=== PATIENT | female | born 1960 | race African-American/Black ===

== ENCOUNTER 2023-03-07 15:24 | Inpatient (IN) | payer MEDICAID, OTHER ==
[~2023-03-07] VITALS: Ht 175.3 cm; Wt 97.1 kg
[2023-03-07 15:36] VITALS: PULSE 186; RESP 27; O2SAT 99
[2023-03-07] MEDS ORDERED: ADENOSINE 6 MG/2 ML INJ IV ONE ×4 (15:48→16:30)
[2023-03-07] MEDS ORDERED: dilTIAZem 25 MG/5 ML VIAL IV ONE (16:00)
[2023-03-07 16:15] LABS: Basophils # (auto) 0.1 10 ^3/uL (0-0.2); Basophils % (auto) 0.8 % (0.0-2.0); Eosinophils # (auto) 0 10 ^3/uL (0-0.8); Eosinophils % (auto) 0.8 % (0.0-7.0); Hematocrit 37.2 % (36.0-46.0); Hemoglobin 12.2 g/dL (12.2-16.2); Lymphocytes # (auto) 1.6 10 ^3/uL (0.4-5.4); Lymphocytes % (auto) 25.2 % (10.0-50.0); Mean Corpuscular Hgb Conc. 32.7 g/dL (32.0-36.0); Mean Corpuscular Volume 82.6 fL (80.0-100.0); Monocytes # (auto) 0.7 10 ^3/uL (0-1.3); Monocytes % (auto) 11.5 % (0.0-12.0); Neutrophils # (auto) 3.9 10 ^3/uL (1.6-8.6); Neutrophils % (auto) 61.7 % (37.0-80.0); Red Cell Distribution Width 12.2 % (11.8-14.3); White Blood Cell 6.2 10^3/uL (4.4-10.8)
[2023-03-07 16:38] LABS: Calcium 8.7 mg/dL (8.5-10.1); Potassium 3.8 mmol/L (3.5-5.1)
[2023-03-07 16:41] LABS: BUN/Creatinine Ratio 12.1 (10.0-20.0); Bilirubin, Total 0.7 mg/dL (0.2-1.0); Total Protein 7.2 g/dL (6.4-8.2)
[2023-03-07] MEDS ORDERED: ASPirin 325 MG TAB PO ONE (17:15)
[2023-03-07] MEDS ORDERED: cefTRIAXone 1GM/50ML D5W 50 ML IV ONE (18:30)
[2023-03-07] MEDS ORDERED: MORPHINE SULFATE INJ 2 MG/ml SYRG IV PRN (19:00)
[2023-03-07] MEDS ORDERED: NITROGLYCERIN 0.4 MG SL TAB SL PRN (19:00)
[2023-03-07] MEDS ORDERED: DEXTROSE (50%) 50ML SYRG IV PRN (19:00)
[2023-03-07 19:30] VITALS: PULSE 84; RESP 16; O2SAT 97
[2023-03-07] MEDS ORDERED: SODIUM CHLORIDE 0.9% 1,000 ML IV ONE (19:45)
[2023-03-07] MEDS: ATORVASTATIN 20 MG TAB PO SCH (21:57)
[2023-03-07] MEDS: ACCU-CHEK COMFORT CURVE STRIP VI SCH (21:58)
[2023-03-07] MEDS: METOPROLOL TARTRATE 25 MG TAB PO SCH (22:00)
[2023-03-07] MEDS: InsuLIN REG 1unit/0.01ml Soln (100units/ml) SC SCH (22:00)
[2023-03-08] MEDS: HYDROcodone-ACET 5/325MG TAB PO PRN ×3 (00:17→20:48)
[2023-03-08 06:10] LABS: Basophils # (auto) 0 10 ^3/uL (0-0.2); Basophils % (auto) 0.5 % (0.0-2.0); Eosinophils # (auto) 0.1 10 ^3/uL (0-0.8); Eosinophils % (auto) 1.9 % (0.0-7.0); Hematocrit 34.8 % (36.0-46.0); Hemoglobin 11.4 g/dL (12.2-16.2); Lymphocytes # (auto) 1.7 10 ^3/uL (0.4-5.4); Lymphocytes % (auto) 28.8 % (10.0-50.0); Mean Corpuscular Hemoglobin 27.2 pg (28.0-32.0); Mean Corpuscular Hgb Conc. 32.6 g/dL (32.0-36.0); Mean Corpuscular Volume 83.5 fL (80.0-100.0); Monocytes # (auto) 0.7 10 ^3/uL (0-1.3); Monocytes % (auto) 11.1 % (0.0-12.0); Neutrophils # (auto) 3.5 10 ^3/uL (1.6-8.6); Neutrophils % (auto) 57.7 % (37.0-80.0); Nucleated Red Blood Cells % 0.1 %; Potassium 3.4 mmol/L (3.5-5.1); Red Blood Cells 4.17 10^6/uL (4.0-5.20); Red Cell Distribution Width 12.2 % (11.8-14.3); White Blood Cell 6.1 10^3/uL (4.4-10.8)
[2023-03-08 06:18] LABS: Albumin 2.5 g/dL (3.4-5.0); BUN/Creatinine Ratio 11.9 (10.0-20.0); Bilirubin, Total 0.5 mg/dL (0.2-1.0); Calcium 8.4 mg/dL (8.5-10.1); Total Protein 6.8 g/dL (6.4-8.2)
[2023-03-08] MEDS: ACCU-CHEK COMFORT CURVE STRIP VI SCH ×4 (06:42→21:39)
[2023-03-08] MEDS: InsuLIN REG 1unit/0.01ml Soln (100units/ml) SC SCH ×4 (06:45→21:52)
[2023-03-08 08:07] VITALS: PULSE 78; RESP 20; O2SAT 98
[2023-03-08] MEDS ORDERED: ASPirin-EC 81 mg tab PO SCH (10:00)
[2023-03-08] MEDS: PANTOPRAZOLE 40 MG/10 ML VIAL INJ IV SCH (10:26)
[2023-03-08] MEDS: METOPROLOL TARTRATE 25 MG TAB PO SCH (10:26)
[2023-03-08] MEDS: ENOXAPARIN SOD 40 MG/0.4 ML SYRINGE SC SCH (10:27)
[2023-03-08] MEDS ORDERED: MAGNESIUM SULFATE 1GM/100ML 100 ML IV ONE (11:45)
[2023-03-08] MEDS ORDERED: POTASSIUM CHL 20 Meq TABLET PO ONE (11:45)
[2023-03-08 18:04] VITALS: BP 137/83; PULSE 83; RESP 18; TEMP 98.6; O2SAT 96
[2023-03-08 18:06] VITALS: BP 137/83; PULSE 83; RESP 18; TEMP 98.6; O2SAT 96
[2023-03-08 20:00] VITALS: BP 132/92; PULSE 162; PULSE 85; RESP 18; O2SAT 96
[2023-03-08 21:04] VITALS: BP 118/64; PULSE 167; RESP 18; O2SAT 98
[2023-03-08] MEDS ORDERED: dilTIAZem 25 MG/5 ML VIAL IV ONE ×2 (21:04→21:15)
[2023-03-08] MEDS: ATORVASTATIN 20 MG TAB PO SCH (21:51)
[2023-03-08 22:00] VITALS: BP 109/49; PULSE 85; RESP 24; TEMP 99.1; O2SAT 93
[2023-03-08] MEDS ORDERED: METOPROLOL TARTRATE 50 MG TAB PO SCH (22:00)
[2023-03-09] VITALS (7 sets, daily range): BP systolic 95–117; BP diastolic 45–57; PULSE 66–100; RESP 14–21; TEMP 97.5–98.9; O2SAT 93–100
[2023-03-09] MEDS: HYDROcodone-ACET 5/325MG TAB PO PRN (04:37)
[2023-03-09 06:00] LABS: Basophils # (auto) 0.1 10 ^3/uL (0-0.2); Basophils % (auto) 0.9 % (0.0-2.0); Eosinophils # (auto) 0.2 10 ^3/uL (0-0.8); Eosinophils % (auto) 3.5 % (0.0-7.0); Hematocrit 34.2 % (36.0-46.0); Hemoglobin 11.2 g/dL (12.2-16.2); Lymphocytes # (auto) 2.2 10 ^3/uL (0.4-5.4); Lymphocytes % (auto) 35.4 % (10.0-50.0); Mean Corpuscular Hemoglobin 27.4 pg (28.0-32.0); Mean Corpuscular Hgb Conc. 32.7 g/dL (32.0-36.0); Mean Corpuscular Volume 83.8 fL (80.0-100.0); Monocytes # (auto) 0.6 10 ^3/uL (0-1.3); Neutrophils # (auto) 3.2 10 ^3/uL (1.6-8.6); Neutrophils % (auto) 51.2 % (37.0-80.0); Nucleated Red Blood Cells % 0.1 %; Red Blood Cells 4.08 10^6/uL (4.0-5.20); Red Cell Distribution Width 12.4 % (11.8-14.3); White Blood Cell 6.2 10^3/uL (4.4-10.8)
[2023-03-09 06:10] LABS: BUN/Creatinine Ratio 10.5 (10.0-20.0); Calcium 8.5 mg/dL (8.5-10.1); Magnesium 2.1 mg/dL (1.6-2.6); Potassium 3.6 mmol/L (3.5-5.1)
[2023-03-09] MEDS: ACCU-CHEK COMFORT CURVE STRIP VI SCH ×4 (06:26→21:16)
[2023-03-09] MEDS: InsuLIN REG 1unit/0.01ml Soln (100units/ml) SC SCH ×4 (06:36→22:13)
[2023-03-09] MEDS ORDERED: METO25TA5 PO (07:33)
[2023-03-09] MEDS ORDERED: GLIP5TAB12 PO (07:33)
[2023-03-09] MEDS ORDERED: METF-370 PO (07:33)
[2023-03-09] MEDS ORDERED: ADENOSINE 82 MG in GIVE UN-DILUTED 0 ML IV ONE (07:45)
[2023-03-09] MEDS ORDERED: POTASSIUM CHL 20 Meq TABLET PO ONE (09:00)
[2023-03-09] MEDS: ENOXAPARIN SOD 40 MG/0.4 ML SYRINGE SC SCH (10:00)
[2023-03-09] MEDS ORDERED: VANCOMYCIN PER PHARMACY 0 MG IV ONE (10:00)
[2023-03-09] MEDS ORDERED: dilTIAZem HCL 180MG ER CAP PO SCH (10:00)
[2023-03-09] MEDS: PANTOPRAZOLE 40 MG/10 ML VIAL INJ IV SCH (13:41)
[2023-03-09] MEDS: AMIODARONE HCL 200 MG TAB PO SCH ×2 (13:44→22:08)
[2023-03-09] MEDS: MAGNESIUM OXIDE 400 MG TAB PO SCH (13:44)
[2023-03-09] MEDS: VANCOMYCIN 1GM/250ML 250 ML IV SCH ×2 (13:44→22:58)
[2023-03-09] MEDS: PIPERACILLIN-TAZOB 3.375GM 100 ML IV SCH ×2 (16:09→18:48)
[2023-03-09] MEDS: IBUPROFEN 600 MG TAB PO PRN (20:32)
[2023-03-09 21:08] LABS: Sodium Urine 59 mmol/L (40-220)
[2023-03-09 21:11] LABS: Cocaine Screen, Urine NEGATIVE (NEGATIVE); Creatinine, Urine 104 mg/dL (30.0-125.0); Phencyclidine Screen, Urine NEGATIVE (NEGATIVE)
[2023-03-09 21:13] LABS: Alcohol, Urine < 3.0 mg/dL (0-10); Amphetamine Screen, Urine NEGATIVE (NEGATIVE); Barbiturate Scree,Urine NEGATIVE (NEGATIVE); Benzodiazephine Screen, Urine NEGATIVE (NEGATIVE); Cannabinoid Screen, Urine NEGATIVE (NEGATIVE); Opiate Scree,Urine POSITIVE (NEGATIVE)
[2023-03-09 21:19] LABS: Urine Bacteria FEW /hpf (None Seen); Urine Blood Negative /uL (Negative); Urine Specific Gravity 1.015 (1.001-1.035); Urine WBC 2 /hpf (0 - 5)
[2023-03-09] MEDS: ATORVASTATIN 20 MG TAB PO SCH (22:08)
[2023-03-10] VITALS (7 sets, daily range): BP systolic 96–110; BP diastolic 41–70; PULSE 57–67; RESP 15–18; TEMP 97.9–98.4; O2SAT 98–100
[2023-03-10] MEDS: PIPERACILLIN-TAZOB 3.375GM 100 ML IV SCH ×3 (03:16→21:02)
[2023-03-10 06:07] LABS: Basophils # (auto) 0 10 ^3/uL (0-0.2); Basophils % (auto) 0.6 % (0.0-2.0); Eosinophils # (auto) 0.2 10 ^3/uL (0-0.8); Eosinophils % (auto) 3.1 % (0.0-7.0); Hematocrit 33.5 % (36.0-46.0); Hemoglobin 11.1 g/dL (12.2-16.2); Lymphocytes # (auto) 1.4 10 ^3/uL (0.4-5.4); Lymphocytes % (auto) 27.8 % (10.0-50.0); Mean Corpuscular Hemoglobin 27.6 pg (28.0-32.0); Mean Corpuscular Volume 83.5 fL (80.0-100.0); Monocytes # (auto) 0.5 10 ^3/uL (0-1.3); Monocytes % (auto) 9.4 % (0.0-12.0); Neutrophils % (auto) 59.1 % (37.0-80.0); Nucleated Red Blood Cells % 0.1 %; Red Blood Cells 4.01 10^6/uL (4.0-5.20); Red Cell Distribution Width 12.2 % (11.8-14.3)
[2023-03-10 06:27] LABS: BUN/Creatinine Ratio 11.3 (10.0-20.0); Calcium 8.6 mg/dL (8.5-10.1); Potassium 3.9 mmol/L (3.5-5.1)
[2023-03-10] MEDS: InsuLIN REG 1unit/0.01ml Soln (100units/ml) SC SCH ×4 (07:00→21:56)
[2023-03-10] MEDS: ACCU-CHEK COMFORT CURVE STRIP VI SCH ×4 (07:09→21:29)
[2023-03-10] MEDS ORDERED: PNEUMOCOCCAL VACC POLYS 25 MCG/0.5 ML VIAL IM ONE (08:00)
[2023-03-10] MEDS ORDERED: dilTIAZem 120MG ER CAP PO SCH (10:00)
[2023-03-10] MEDS: VANCOMYCIN 1GM/250ML 250 ML IV SCH (10:11)
[2023-03-10] MEDS: MAGNESIUM OXIDE 400 MG TAB PO SCH (10:11)
[2023-03-10] MEDS: ENOXAPARIN SOD 40 MG/0.4 ML SYRINGE SC SCH (10:12)
[2023-03-10] MEDS: ASPirin 81 mg TAB PO SCH (10:12)
[2023-03-10] MEDS: AMIODARONE HCL 200 MG TAB PO SCH ×2 (10:12→21:47)
[2023-03-10] MEDS: PANTOPRAZOLE 40 MG/10 ML VIAL INJ IV SCH (10:12)
[2023-03-10] MEDS: IBUPROFEN 600 MG TAB PO PRN ×2 (15:01→21:01)
[2023-03-10] MEDS: ATORVASTATIN 20 MG TAB PO SCH (21:47)
[2023-03-11] MEDS: VANCOMYCIN 1GM/250ML 250 ML IV SCH (00:08)
[2023-03-11] MEDS: PIPERACILLIN-TAZOB 3.375GM 100 ML IV SCH ×2 (04:08→12:00)
[2023-03-11 05:00] VITALS: BP 98/65; PULSE 60; RESP 17; TEMP 98.2; O2SAT 100
[2023-03-11] MEDS: ACCU-CHEK COMFORT CURVE STRIP VI SCH ×2 (06:37→11:30)
[2023-03-11] MEDS: InsuLIN REG 1unit/0.01ml Soln (100units/ml) SC SCH ×2 (06:58→13:09)
[2023-03-11 08:00] VITALS: PULSE 61; PULSE 62; RESP 16; O2SAT 98
[2023-03-11] MEDS ORDERED: PNEUMOCOCCAL VACC POLYS 25 MCG/0.5 ML VIAL IM ONE (08:30)
[2023-03-11 09:35] VITALS: BP 94/41; PULSE 62; RESP 16; TEMP 98; O2SAT 98
[2023-03-11] MEDS: MAGNESIUM OXIDE 400 MG TAB PO SCH (10:00)
[2023-03-11] MEDS: ENOXAPARIN SOD 40 MG/0.4 ML SYRINGE SC SCH (10:00)
[2023-03-11] MEDS: PANTOPRAZOLE 40 MG/10 ML VIAL INJ IV SCH (10:00)
[2023-03-11] MEDS: ASPirin 81 mg TAB PO SCH (10:00)
[2023-03-11 14:11] VITALS: BP 111/40; PULSE 63; RESP 17; TEMP 97.5; O2SAT 100
[2023-03-11] MEDS ORDERED: VANCOMYCIN 1GM/250ML 250 ML IV SCH (17:00)
== END 2023-03-11 14:10 | disposition left against medical advice (07) | DRG 201 ==
LOC: ER 15:24 → EDBD 15:24 → TELE 19:18 → TELE-EAST 03-08 17:30
PROVIDERS: ADMIT Internal Medicine; ATTEND Internal Medicine
DX: I47.1 Supraventricular tachycardia (principal); I21.A1 Myocardial infarction type 2; N17.9 Acute kidney failure, unspecified; E11.9 Type 2 diabetes mellitus without complications; E87.6 Hypokalemia; E66.9 Obesity, unspecified; I48.91 Unspecified atrial fibrillation; L08.9 Local infection of the skin and subcutaneous tissue, unspecified; Z53.29 Procedure and treatment not carried out because of patient's decision for other reasons; Z91.199 Patient's noncompliance with other medical treatment and regimen due to unspecified reason; Z68.31 Body mass index [BMI] 31.0-31.9, adult; Z82.49 Family history of ischemic heart disease and other diseases of the circulatory system; Z90.49 Acquired absence of other specified parts of digestive tract
CPT/HCPCS: 36415; 71045; 78452; 80048; 80053; 80061; 80202; 80307; 81001; 82570; 82962; 83036; 83735; 83880; 84300; 84443; 84484; 85025; 93005; 93017; 93306; C9113; G0378; J0153; J0696; J1815; J2543